=== PATIENT | male | born 1950 | race Caucasian/White ===

== ENCOUNTER 2017-09-10 16:29 | Inpatient (IN) | payer MEDICARE, OTHER ==
[2017-09-10] MEDS: morphine 4 MG/ML VIAL IV (17:07)
[2017-09-10] MEDS: ONDANSETRON 4 MG INJ IV (17:07)
[2017-09-10] MEDS: SOD CHLORIDE 0.9% 1,000 ML IV (17:08)
[2017-09-10 17:12] LABS: ADD MAN DIFF? NO
[2017-09-10 17:15] LABS: BASOPHILS % 0.2 % (0.0-2.0); EOSINOPHILS # 0.2 10^3/ul (0.0-0.5); EOSINOPHILS % 1.3 % (0.0-7.0); HEMATOCRIT 35.9 % (42.0-52.0); HEMOGLOBIN 11.1 g/dl (14.0-18.0); LYMPHOCYTES # 1.2 10^3/ul (0.8-2.9); LYMPHOCYTES % 8.4 % (15.0-51.0); MEAN CORPUSCULAR HEMOGLOBIN 27.9 pg (29.0-33.0); MEAN CORPUSCULAR HGB CONC 30.9 g/dl (32.0-37.0); MEAN CORPUSCULAR VOLUME 90.2 fl (82.0-101.0); MEAN PLATELET VOLUME 11.5 fl (7.4-10.4); MONOCYTE # 0.6 10^3/ul (0.3-0.9); MONOCYTES % 4.5 % (0.0-11.0); PLATELET COUNT 295 10^3/UL (140-415); RED BLOOD COUNT 3.98 10^6/ul (4.70-6.10); RED CELL DISTRIBUTION WIDTH 13.6 % (11.5-14.5)
[2017-09-10 17:15] LABS: WHITE BLOOD COUNT 14.1 10^3/ul (4.8-10.8)
[2017-09-10 17:37] LABS: ALANINE AMINOTRANSFERASE 74 IU/L (13-69); ALBUMIN 3.7 g/dl (3.3-4.9); ALBUMIN/GLOBULIN RATIO 1.02; ALKALINE PHOSPHATASE 810 IU/L (42-121); ANION GAP 13 (8-16); ASPARTATE AMINO TRANSFERASE 238 IU/L (15-46); BILIRUBIN,INDIRECT 0.2 mg/dl (0-1.1); BILIRUBIN,TOTAL 0.3 mg/dl (0.2-1.3); BLOOD UREA NITROGEN 27 mg/dl (7-20); CALCIUM 9.4 mg/dl (8.4-10.2); CARBON DIOXIDE 30 mmol/L (21-31); CHLORIDE 107 mmol/L (97-110); CREATININE 1.24 mg/dl (0.61-1.24); GLUCOSE 53 mg/dl (70-220); LIPASE 62 U/L (23-300); POTASSIUM 4.2 mmol/L (3.5-5.1); SODIUM 146 mmol/L (135-144); TOTAL PROTEIN 7.3 g/dl (6.1-8.1)
[2017-09-10] MEDS ORDERED: DEXTROSE 50% 50 ML SYRINGE (18:17)
[2017-09-10] MEDS: DEXTROSE 50% 50 ML SYRINGE IV (18:22)
[2017-09-10] MEDS ORDERED: ONDANSETRON 4 MG INJ IV (19:00)
[2017-09-10] MEDS ORDERED: ACETAMINOPHEN 325 MG TAB PO ×3 (19:00→20:30)
[2017-09-10] MEDS: LEVOFLOXACIN 500MG/D5W (PMX) 100 ML IVPB (20:23)
[2017-09-10] MEDS: morphine 2 MG INJ IV (20:23)
[2017-09-10] MEDS ORDERED: NACL 0.9% 3 ML SYG IV (20:30)
[2017-09-10] MEDS: DICLOFENAC SODIUM 1% GEL 100 GM TUBE TP (21:00)
[2017-09-10] MEDS: TAMSULOSIN (SR) 0.4 MG CAP PO (22:20)
[2017-09-10] MEDS: CARBIDOPA/LEVODOPA (25/100) TAB PO (22:20)
[2017-09-10] MEDS: GABAPENTIN 400 MG CAP PO (22:21)
[2017-09-10] MEDS: traZODone 50 MG TAB PO (22:21)
[2017-09-10] MEDS: SENNA TAB PO (22:21)
[2017-09-10] MEDS: FERROUS SULFATE (EC) 325 MG TAB PO (22:21)
[2017-09-10] MEDS: DEXTROSE 5%-0.45% NACL 1,000 ML IV (22:22)
[2017-09-10] MEDS: PIPER-TAZO 3.375 GM IV (PMX) 100 ML IVPB (22:22)
[2017-09-10] MEDS: EZETIMIBE 10 MG TAB PO (22:33)
[2017-09-10] MEDS: DIVALPROEX (EC) 250 MG TAB PO (22:33)
[2017-09-11] MEDS: morphine 2 MG INJ IV ×4 (00:36→16:34)
[2017-09-11] MEDS: PANTOPRAZOLE (EC) 40 MG TAB PO (05:33)
[2017-09-11] MEDS: PIPER-TAZO 3.375 GM IV (PMX) 100 ML IVPB ×3 (05:33→22:31)
[2017-09-11 05:55] LABS: ADD MAN DIFF? NO
[2017-09-11 06:03] LABS: WHITE BLOOD COUNT 22.8 10^3/ul (4.8-10.8)
[2017-09-11 06:03] LABS: ABNORMAL IP MESSAGE 1; BASOPHILS % 0.2 % (0.0-2.0); EOSINOPHILS # 0.1 10^3/ul (0.0-0.5); EOSINOPHILS % 0.2 % (0.0-7.0); HEMATOCRIT 32.6 % (42.0-52.0); HEMOGLOBIN 10.3 g/dl (14.0-18.0); LYMPHOCYTES # 0.7 10^3/ul (0.8-2.9); MEAN CORPUSCULAR HEMOGLOBIN 28.4 pg (29.0-33.0); MEAN CORPUSCULAR HGB CONC 31.6 g/dl (32.0-37.0); MEAN CORPUSCULAR VOLUME 89.8 fl (82.0-101.0); MEAN PLATELET VOLUME 11.8 fl (7.4-10.4); MONOCYTE # 1.3 10^3/ul (0.3-0.9); MONOCYTES % 5.8 % (0.0-11.0); NEUTROPHIL # 20.6 10^3/ul (1.6-7.5); NEUTROPHILS % 90.2 % (39.0-77.0); PLATELET COUNT 268 10^3/UL (140-415); POSITIVE DIFF @See below; RED BLOOD COUNT 3.63 10^6/ul (4.70-6.10); RED CELL DISTRIBUTION WIDTH 13.4 % (11.5-14.5)
[2017-09-11 06:07] LABS: HEMOGLOBIN A1C 6.5 % (0-5.9)
[2017-09-11 06:27] LABS: ALANINE AMINOTRANSFERASE 84 IU/L (13-69); ALBUMIN 2.9 g/dl (3.3-4.9); ALBUMIN/GLOBULIN RATIO 0.93; ALKALINE PHOSPHATASE 571 IU/L (42-121); ANION GAP 12 (8-16); ASPARTATE AMINO TRANSFERASE 237 IU/L (15-46); BILIRUBIN,INDIRECT 0.3 mg/dl (0-1.1); BILIRUBIN,TOTAL 0.7 mg/dl (0.2-1.3); BLOOD UREA NITROGEN 24 mg/dl (7-20); CALCIUM 8.4 mg/dl (8.4-10.2); CARBON DIOXIDE 27 mmol/L (21-31); CHLORIDE 109 mmol/L (97-110); CREATININE 1.41 mg/dl (0.61-1.24); GLUCOSE 115 mg/dl (70-220); MAGNESIUM 1.9 mg/dl (1.7-2.5); PHOSPHORUS 3.1 mg/dl (2.5-4.9); POTASSIUM 5.4 mmol/L (3.5-5.1); SODIUM 143 mmol/L (135-144)
[2017-09-11] MEDS ORDERED: ROCURONIUM 50 MG INJ (07:00)
[2017-09-11] MEDS: FINASTERIDE 5 MG TAB PO (08:12)
[2017-09-11] MEDS: CYANOCOBALAMIN 500 MCG TAB PO (08:12)
[2017-09-11] MEDS: FERROUS SULFATE (EC) 325 MG TAB PO ×2 (08:12→21:01)
[2017-09-11] MEDS: SENNA TAB PO ×2 (08:12→21:02)
[2017-09-11] MEDS: GABAPENTIN 400 MG CAP PO ×3 (08:12→21:01)
[2017-09-11] MEDS: DIVALPROEX (EC) 250 MG TAB PO ×2 (08:12→21:01)
[2017-09-11] MEDS: CARBIDOPA/LEVODOPA (25/100) TAB PO ×4 (08:12→21:02)
[2017-09-11] MEDS: LOSARTAN 50 MG TAB PO (08:13)
[2017-09-11] MEDS: DICLOFENAC SODIUM 1% GEL 100 GM TUBE TP ×4 (08:46→21:02)
[2017-09-11] MEDS ORDERED: ASPIRIN 81 MG TAB PO (09:00)
[2017-09-11] MEDS: ONDANSETRON 4 MG INJ IV ×2 (09:14→22:28)
[2017-09-11] MEDS: DEXTROSE 5%-0.45% NACL 1,000 ML IV ×3 (10:26→22:28)
[2017-09-11] MEDS ORDERED: PENDING SANTYL ORDER FOR WOUND CARE XX (11:00)
[2017-09-11] MEDS ORDERED: IOHEXOL 300MG/ML 30 ML BTL (18:29)
[2017-09-11] MEDS ORDERED: MIDAZOLAM 1 MG/ML 2 ML INJ (18:53)
[2017-09-11] MEDS ORDERED: FENTAnyl 50 MCG/ML VIAL (18:53)
[2017-09-11] MEDS ORDERED: ETOMIDATE 20 MG INJ (18:53)
[2017-09-11] MEDS ORDERED: LIDOCAINE 1% (MDV) 20 ML INJ (18:53)
[2017-09-11] MEDS ORDERED: INDOMETHACIN 50 MG SUPP PR (19:00)
[2017-09-11] MEDS ORDERED: EPHEDrine SULFATE 50 MG/5 ML SYG (19:16)
[2017-09-11] MEDS ORDERED: CEFAZOLIN 1 GM INJ (19:19)
[2017-09-11] MEDS ORDERED: PHENYLephrine (100 MCG/ML) 5ML SYG (19:20)
[2017-09-11] MEDS ORDERED: ONDANSETRON 4 MG INJ (19:48)
[2017-09-11] MEDS ORDERED: SUGAMMADEX SODIUM 200 MG/2 ML VIAL IV (19:52)
[2017-09-11] MEDS: EZETIMIBE 10 MG TAB PO (21:01)
[2017-09-11] MEDS: TAMSULOSIN (SR) 0.4 MG CAP PO (21:01)
[2017-09-11] MEDS: traZODone 50 MG TAB PO (21:02)
[2017-09-11] MEDS ORDERED: DEXTROSE 50% 50 ML SYRINGE IV ×2 (21:45)
[2017-09-11] MEDS ORDERED: GLUCAGON 1 MG INJ IM (21:45)
[2017-09-11] MEDS ORDERED: GLUCOSE GEL 15 GRAM TUBE PO ×2 (21:45)
[2017-09-11] MEDS ORDERED: GLUCOSE GEL 15 GRAM TUBE BUCCAL (21:45)
[2017-09-11] MEDS: INSULIN DETEMIR [LEVEMIR] 3ML CART SC (22:33)
[2017-09-11] MEDS: INSULIN ASPART [NOVOLOG] 3 ML PEN SC (22:34)
[2017-09-12] MEDS: ACCU-CHEK XX (02:00)
[2017-09-12] MEDS: PIPER-TAZO 3.375 GM IV (PMX) 100 ML IVPB ×3 (05:46→21:48)
[2017-09-12] MEDS: PANTOPRAZOLE (EC) 40 MG TAB PO (05:46)
[2017-09-12 05:55] LABS: ADD MAN DIFF? NO
[2017-09-12 06:04] LABS: WHITE BLOOD COUNT 11.7 10^3/ul (4.8-10.8)
[2017-09-12 06:04] LABS: BASOPHILS % 0.3 % (0.0-2.0); EOSINOPHILS # 0.2 10^3/ul (0.0-0.5); EOSINOPHILS % 1.3 % (0.0-7.0); HEMATOCRIT 32.3 % (42.0-52.0); LYMPHOCYTES # 0.6 10^3/ul (0.8-2.9); LYMPHOCYTES % 5.4 % (15.0-51.0); MEAN CORPUSCULAR HEMOGLOBIN 28.2 pg (29.0-33.0); MEAN PLATELET VOLUME 11.8 fl (7.4-10.4); MONOCYTE # 0.7 10^3/ul (0.3-0.9); MONOCYTES % 6.3 % (0.0-11.0); NEUTROPHIL # 10.1 10^3/ul (1.6-7.5); NEUTROPHILS % 86.2 % (39.0-77.0); PLATELET COUNT 227 10^3/UL (140-415); RED BLOOD COUNT 3.55 10^6/ul (4.70-6.10); RED CELL DISTRIBUTION WIDTH 13.4 % (11.5-14.5)
[2017-09-12 06:31] LABS: PHOSPHORUS 2.9 mg/dl (2.5-4.9)
[2017-09-12 06:31] LABS: MAGNESIUM 1.9 mg/dl (1.7-2.5)
[2017-09-12 06:37] LABS: ALANINE AMINOTRANSFERASE 60 IU/L (13-69); ALBUMIN 2.8 g/dl (3.3-4.9); ALBUMIN/GLOBULIN RATIO 0.87; ALKALINE PHOSPHATASE 517 IU/L (42-121); ANION GAP 13 (8-16); ASPARTATE AMINO TRANSFERASE 105 IU/L (15-46); BILIRUBIN,INDIRECT 0.4 mg/dl (0-1.1); BILIRUBIN,TOTAL 1.4 mg/dl (0.2-1.3); BLOOD UREA NITROGEN 19 mg/dl (7-20); CARBON DIOXIDE 24 mmol/L (21-31); CHLORIDE 106 mmol/L (97-110); CREATININE 1.38 mg/dl (0.61-1.24); GLUCOSE 345 mg/dl (70-220); POTASSIUM 4.4 mmol/L (3.5-5.1); SODIUM 139 mmol/L (135-144)
[2017-09-12] MEDS: INSULIN ASPART [NOVOLOG] 3 ML PEN SC ×4 (08:14→22:03)
[2017-09-12] MEDS: GABAPENTIN 400 MG CAP PO ×3 (08:15→21:52)
[2017-09-12] MEDS: CARBIDOPA/LEVODOPA (25/100) TAB PO ×4 (08:16→21:50)
[2017-09-12] MEDS: CYANOCOBALAMIN 500 MCG TAB PO (08:16)
[2017-09-12] MEDS: DIVALPROEX (EC) 250 MG TAB PO ×2 (08:16→22:37)
[2017-09-12] MEDS: SENNA TAB PO ×2 (08:16→21:49)
[2017-09-12] MEDS: DICLOFENAC SODIUM 1% GEL 100 GM TUBE TP ×4 (08:16→21:52)
[2017-09-12] MEDS: FERROUS SULFATE (EC) 325 MG TAB PO ×2 (08:16→21:52)
[2017-09-12] MEDS: FINASTERIDE 5 MG TAB PO (08:16)
[2017-09-12] MEDS: morphine 2 MG INJ IV ×2 (08:17→13:19)
[2017-09-12] MEDS: LOSARTAN 50 MG TAB PO (08:26)
[2017-09-12] MEDS: SOD CHLORIDE 0.9% 1,000 ML IV (09:25)
[2017-09-12] MEDS: ONDANSETRON 4 MG INJ IV (13:31)
[2017-09-12] MEDS ORDERED: morphine LIQ (10 MG/5 ML) CUP PO (14:00)
[2017-09-12] MEDS: HYDROmorphONE 0.5 MG/0.5 ML SYG IV ×2 (18:27→22:37)
[2017-09-12] MEDS ORDERED: INSULIN DETEMIR [LEVEMIR] 3ML CART SC ×2 (21:00)
[2017-09-12] MEDS: TAMSULOSIN (SR) 0.4 MG CAP PO (21:50)
[2017-09-12] MEDS: traZODone 50 MG TAB PO (21:50)
[2017-09-12] MEDS: EZETIMIBE 10 MG TAB PO (21:51)
[2017-09-12] MEDS: INSULIN DETEMIR [LEVEMIR] 3ML CART SC (22:02)
[2017-09-13] MEDS: ACCU-CHEK XX (02:00)
[2017-09-13] MEDS: SOD CHLORIDE 0.9% 1,000 ML IV (02:46)
[2017-09-13] MEDS: HYDROmorphONE 0.5 MG/0.5 ML SYG IV ×4 (02:46→17:36)
[2017-09-13] MEDS: PANTOPRAZOLE (EC) 40 MG TAB PO (06:12)
[2017-09-13] MEDS: PIPER-TAZO 3.375 GM IV (PMX) 100 ML IVPB ×3 (06:12→22:01)
[2017-09-13 06:14] LABS: ADD MAN DIFF? NO
[2017-09-13 06:21] LABS: WHITE BLOOD COUNT 8.9 10^3/ul (4.8-10.8)
[2017-09-13 06:21] LABS: BASOPHILS % 0.2 % (0.0-2.0); EOSINOPHILS # 0.3 10^3/ul (0.0-0.5); EOSINOPHILS % 3.7 % (0.0-7.0); HEMATOCRIT 32.7 % (42.0-52.0); HEMOGLOBIN 10.1 g/dl (14.0-18.0); LYMPHOCYTES # 0.9 10^3/ul (0.8-2.9); LYMPHOCYTES % 10.6 % (15.0-51.0); MEAN CORPUSCULAR HEMOGLOBIN 27.7 pg (29.0-33.0); MEAN CORPUSCULAR HGB CONC 30.9 g/dl (32.0-37.0); MEAN CORPUSCULAR VOLUME 89.6 fl (82.0-101.0); MEAN PLATELET VOLUME 12.5 fl (7.4-10.4); MONOCYTE # 0.4 10^3/ul (0.3-0.9); MONOCYTES % 4.9 % (0.0-11.0); NEUTROPHIL # 7.1 10^3/ul (1.6-7.5); PLATELET COUNT 223 10^3/UL (140-415); RED BLOOD COUNT 3.65 10^6/ul (4.70-6.10); RED CELL DISTRIBUTION WIDTH 13.6 % (11.5-14.5)
[2017-09-13 06:55] LABS: ALANINE AMINOTRANSFERASE 53 IU/L (13-69); ALBUMIN 2.8 g/dl (3.3-4.9); ALBUMIN/GLOBULIN RATIO 0.93; ALKALINE PHOSPHATASE 522 IU/L (42-121); ANION GAP 9 (8-16); ASPARTATE AMINO TRANSFERASE 63 IU/L (15-46); BILIRUBIN,INDIRECT 0.4 mg/dl (0-1.1); BILIRUBIN,TOTAL 0.4 mg/dl (0.2-1.3); BLOOD UREA NITROGEN 13 mg/dl (7-20); CALCIUM 8.4 mg/dl (8.4-10.2); CARBON DIOXIDE 27 mmol/L (21-31); CHLORIDE 111 mmol/L (97-110); CREATININE 1.25 mg/dl (0.61-1.24); GLUCOSE 187 mg/dl (70-220); POTASSIUM 4.1 mmol/L (3.5-5.1); SODIUM 143 mmol/L (135-144); TOTAL PROTEIN 5.8 g/dl (6.1-8.1)
[2017-09-13 06:58] LABS: MAGNESIUM 1.9 mg/dl (1.7-2.5)
[2017-09-13 06:58] LABS: PHOSPHORUS 2.5 mg/dl (2.5-4.9)
[2017-09-13] MEDS: INSULIN ASPART [NOVOLOG] 3 ML PEN SC ×7 (07:35→21:02)
[2017-09-13] MEDS: ONDANSETRON 4 MG INJ IV ×2 (09:28→17:41)
[2017-09-13] MEDS: DICLOFENAC SODIUM 1% GEL 100 GM TUBE TP ×4 (09:32→21:02)
[2017-09-13] MEDS: GABAPENTIN 400 MG CAP PO ×3 (11:56→20:59)
[2017-09-13] MEDS: DIVALPROEX (EC) 250 MG TAB PO ×2 (11:56→20:59)
[2017-09-13] MEDS: FERROUS SULFATE (EC) 325 MG TAB PO ×2 (11:56→20:59)
[2017-09-13] MEDS: LOSARTAN 50 MG TAB PO (11:56)
[2017-09-13] MEDS: FINASTERIDE 5 MG TAB PO (11:57)
[2017-09-13] MEDS: CYANOCOBALAMIN 500 MCG TAB PO (11:57)
[2017-09-13] MEDS: SENNA TAB PO ×2 (11:57→21:00)
[2017-09-13] MEDS: CARBIDOPA/LEVODOPA (25/100) TAB PO ×4 (11:57→21:00)
[2017-09-13] MEDS: TAMSULOSIN (SR) 0.4 MG CAP PO (20:59)
[2017-09-13] MEDS: EZETIMIBE 10 MG TAB PO (21:00)
[2017-09-13] MEDS: traZODone 50 MG TAB PO (21:00)
[2017-09-13] MEDS: INSULIN DETEMIR [LEVEMIR] 3ML CART SC (21:01)
[2017-09-14] MEDS: ACCU-CHEK XX (01:12)
[2017-09-14] MEDS: MAGNESIUM HYDROXIDE 30ML CUP PO (05:43)
[2017-09-14] MEDS: PIPER-TAZO 3.375 GM IV (PMX) 100 ML IVPB ×3 (05:43→21:53)
[2017-09-14] MEDS: PANTOPRAZOLE (EC) 40 MG TAB PO (05:44)
[2017-09-14 06:21] LABS: ADD MAN DIFF? NO
[2017-09-14 06:23] LABS: BASOPHILS % 0.5 % (0.0-2.0); EOSINOPHILS # 0.4 10^3/ul (0.0-0.5); EOSINOPHILS % 4.8 % (0.0-7.0); HEMATOCRIT 34.7 % (42.0-52.0); HEMOGLOBIN 10.9 g/dl (14.0-18.0); LYMPHOCYTES # 1.3 10^3/ul (0.8-2.9); LYMPHOCYTES % 15.1 % (15.0-51.0); MEAN CORPUSCULAR HEMOGLOBIN 27.5 pg (29.0-33.0); MEAN CORPUSCULAR HGB CONC 31.4 g/dl (32.0-37.0); MEAN CORPUSCULAR VOLUME 87.4 fl (82.0-101.0); MEAN PLATELET VOLUME 11.9 fl (7.4-10.4); MONOCYTE # 0.5 10^3/ul (0.3-0.9); MONOCYTES % 6.1 % (0.0-11.0); NEUTROPHIL # 6.3 10^3/ul (1.6-7.5); NEUTROPHILS % 72.9 % (39.0-77.0); PLATELET COUNT 260 10^3/UL (140-415); RED BLOOD COUNT 3.97 10^6/ul (4.70-6.10); RED CELL DISTRIBUTION WIDTH 13.7 % (11.5-14.5)
[2017-09-14 06:23] LABS: WHITE BLOOD COUNT 8.6 10^3/ul (4.8-10.8)
[2017-09-14 06:45] LABS: MAGNESIUM 1.9 mg/dl (1.7-2.5)
[2017-09-14 06:45] LABS: PHOSPHORUS 2.8 mg/dl (2.5-4.9)
[2017-09-14 06:49] LABS: ANION GAP 12 (8-16); BLOOD UREA NITROGEN 11 mg/dl (7-20); CALCIUM 8.4 mg/dl (8.4-10.2); CARBON DIOXIDE 26 mmol/L (21-31); CHLORIDE 109 mmol/L (97-110); CREATININE 1.13 mg/dl (0.61-1.24); GLUCOSE 175 mg/dl (70-220); POTASSIUM 4.4 mmol/L (3.5-5.1); SODIUM 143 mmol/L (135-144)
[2017-09-14] MEDS: INSULIN ASPART [NOVOLOG] 3 ML PEN SC ×7 (07:35→20:37)
[2017-09-14] MEDS: FERROUS SULFATE (EC) 325 MG TAB PO ×3 (09:00→20:34)
[2017-09-14] MEDS: DIVALPROEX (EC) 250 MG TAB PO ×3 (09:00→20:34)
[2017-09-14] MEDS: LOSARTAN 50 MG TAB PO ×2 (09:00→11:20)
[2017-09-14] MEDS: DICLOFENAC SODIUM 1% GEL 100 GM TUBE TP ×5 (09:00→20:45)
[2017-09-14] MEDS: GABAPENTIN 400 MG CAP PO ×4 (09:00→20:34)
[2017-09-14] MEDS: SENNA TAB PO ×3 (09:00→20:34)
[2017-09-14] MEDS: CARBIDOPA/LEVODOPA (25/100) TAB PO ×5 (09:00→20:34)
[2017-09-14] MEDS: FINASTERIDE 5 MG TAB PO ×2 (09:00→11:20)
[2017-09-14] MEDS: CYANOCOBALAMIN 500 MCG TAB PO ×2 (09:00→11:20)
[2017-09-14] MEDS: HYDROmorphONE 0.5 MG/0.5 ML SYG IV ×3 (11:15→20:39)
[2017-09-14] MEDS: ONDANSETRON 4 MG INJ IV (13:02)
[2017-09-14] MEDS: HYDROCODONE/APAP (5/325) TAB PO (14:27)
[2017-09-14] MEDS: TAMSULOSIN (SR) 0.4 MG CAP PO (20:34)
[2017-09-14] MEDS: EZETIMIBE 10 MG TAB PO (20:34)
[2017-09-14] MEDS: traZODone 50 MG TAB PO (20:34)
[2017-09-14] MEDS: INSULIN DETEMIR [LEVEMIR] 3ML CART SC (20:37)
[2017-09-15] MEDS: HYDROmorphONE 0.5 MG/0.5 ML SYG IV ×6 (01:57→23:00)
[2017-09-15] MEDS: ACCU-CHEK XX (02:00)
[2017-09-15] MEDS: PIPER-TAZO 3.375 GM IV (PMX) 100 ML IVPB ×3 (05:34→21:48)
[2017-09-15] MEDS: PANTOPRAZOLE (EC) 40 MG TAB PO (05:34)
[2017-09-15 07:13] LABS: ADD MAN DIFF? NO
[2017-09-15 07:18] LABS: WHITE BLOOD COUNT 7.7 10^3/ul (4.8-10.8)
[2017-09-15 07:18] LABS: BASOPHILS % 0.5 % (0.0-2.0); EOSINOPHILS # 0.3 10^3/ul (0.0-0.5); EOSINOPHILS % 4.4 % (0.0-7.0); HEMATOCRIT 33.6 % (42.0-52.0); HEMOGLOBIN 10.5 g/dl (14.0-18.0); LYMPHOCYTES # 1.3 10^3/ul (0.8-2.9); MEAN CORPUSCULAR HEMOGLOBIN 27.9 pg (29.0-33.0); MEAN CORPUSCULAR HGB CONC 31.3 g/dl (32.0-37.0); MEAN CORPUSCULAR VOLUME 89.4 fl (82.0-101.0); MONOCYTE # 0.6 10^3/ul (0.3-0.9); MONOCYTES % 7.6 % (0.0-11.0); NEUTROPHIL # 5.4 10^3/ul (1.6-7.5); PLATELET COUNT 244 10^3/UL (140-415); RED BLOOD COUNT 3.76 10^6/ul (4.70-6.10); RED CELL DISTRIBUTION WIDTH 13.9 % (11.5-14.5)
[2017-09-15 07:42] LABS: ALANINE AMINOTRANSFERASE 40 IU/L (13-69); ALBUMIN 3.2 g/dl (3.3-4.9); ALBUMIN/GLOBULIN RATIO 0.91; ALKALINE PHOSPHATASE 489 IU/L (42-121); ANION GAP 14 (8-16); ASPARTATE AMINO TRANSFERASE 19 IU/L (15-46); BILIRUBIN,INDIRECT 0.6 mg/dl (0-1.1); BILIRUBIN,TOTAL 0.6 mg/dl (0.2-1.3); BLOOD UREA NITROGEN 15 mg/dl (7-20); CALCIUM 8.4 mg/dl (8.4-10.2); CARBON DIOXIDE 27 mmol/L (21-31); CHLORIDE 106 mmol/L (97-110); CREATININE 1.11 mg/dl (0.61-1.24); GLUCOSE 181 mg/dl (70-220); POTASSIUM 4.4 mmol/L (3.5-5.1); SODIUM 143 mmol/L (135-144); TOTAL PROTEIN 6.7 g/dl (6.1-8.1)
[2017-09-15 07:47] LABS: PHOSPHORUS 2.8 mg/dl (2.5-4.9)
[2017-09-15] MEDS: INSULIN ASPART [NOVOLOG] 3 ML PEN SC ×7 (08:00→21:00)
[2017-09-15] MEDS: DICLOFENAC SODIUM 1% GEL 100 GM TUBE TP ×4 (08:41→21:06)
[2017-09-15] MEDS: DIPHENHYDRAMINE 25 MG CAP PO (08:41)
[2017-09-15] MEDS: GABAPENTIN 400 MG CAP PO ×3 (08:42→20:56)
[2017-09-15] MEDS: SENNA TAB PO ×2 (08:42→20:56)
[2017-09-15] MEDS: LOSARTAN 50 MG TAB PO (08:43)
[2017-09-15] MEDS: CARBIDOPA/LEVODOPA (25/100) TAB PO ×4 (08:43→20:56)
[2017-09-15] MEDS: FINASTERIDE 5 MG TAB PO (08:43)
[2017-09-15] MEDS: FERROUS SULFATE (EC) 325 MG TAB PO ×2 (08:43→20:56)
[2017-09-15] MEDS: CYANOCOBALAMIN 500 MCG TAB PO (08:43)
[2017-09-15] MEDS: DIVALPROEX (EC) 250 MG TAB PO ×2 (08:45→20:56)
[2017-09-15] MEDS: HYDROCODONE/APAP (5/325) TAB PO (10:56)
[2017-09-15] MEDS: TAMSULOSIN (SR) 0.4 MG CAP PO (20:56)
[2017-09-15] MEDS: EZETIMIBE 10 MG TAB PO (20:56)
[2017-09-15] MEDS: traZODone 50 MG TAB PO (20:56)
[2017-09-15] MEDS: INSULIN DETEMIR [LEVEMIR] 3ML CART SC (21:15)
[2017-09-16] MEDS: ACCU-CHEK XX (02:00)
[2017-09-16] MEDS: HYDROmorphONE 0.5 MG/0.5 ML SYG IV ×4 (03:06→19:02)
[2017-09-16] MEDS: PIPER-TAZO 3.375 GM IV (PMX) 100 ML IVPB ×3 (05:33→21:31)
[2017-09-16] MEDS: PANTOPRAZOLE (EC) 40 MG TAB PO (05:35)
[2017-09-16] MEDS: INSULIN ASPART [NOVOLOG] 3 ML PEN SC ×7 (08:26→21:00)
[2017-09-16] MEDS: SENNA TAB PO ×2 (08:37→20:54)
[2017-09-16] MEDS: FERROUS SULFATE (EC) 325 MG TAB PO ×2 (08:37→20:54)
[2017-09-16] MEDS: DIVALPROEX (EC) 250 MG TAB PO ×2 (08:37→21:01)
[2017-09-16] MEDS: CARBIDOPA/LEVODOPA (25/100) TAB PO ×4 (08:37→20:54)
[2017-09-16] MEDS: LOSARTAN 50 MG TAB PO (08:37)
[2017-09-16] MEDS: DICLOFENAC SODIUM 1% GEL 100 GM TUBE TP ×4 (08:37→21:01)
[2017-09-16] MEDS: CYANOCOBALAMIN 500 MCG TAB PO (08:38)
[2017-09-16] MEDS: GABAPENTIN 400 MG CAP PO ×3 (08:38→20:54)
[2017-09-16] MEDS: FINASTERIDE 5 MG TAB PO (08:38)
[2017-09-16] MEDS: ONDANSETRON 4 MG INJ IV (11:31)
[2017-09-16] MEDS: MAGNESIUM HYDROXIDE 30ML CUP PO (12:32)
[2017-09-16] MEDS: DOCUSATE SODIUM 100 MG CAP PO (12:32)
[2017-09-16] MEDS: EZETIMIBE 10 MG TAB PO (20:54)
[2017-09-16] MEDS: TAMSULOSIN (SR) 0.4 MG CAP PO (20:54)
[2017-09-16] MEDS: traZODone 50 MG TAB PO (20:54)
[2017-09-16] MEDS: INSULIN DETEMIR [LEVEMIR] 3ML CART SC (21:00)
[2017-09-16] MEDS: ZOLPIDEM 5 MG TAB PO (22:34)
[2017-09-17] MEDS: ACCU-CHEK XX (01:52)
[2017-09-17] MEDS: PANTOPRAZOLE (EC) 40 MG TAB PO (05:48)
[2017-09-17] MEDS: PIPER-TAZO 3.375 GM IV (PMX) 100 ML IVPB ×3 (05:48→21:07)
[2017-09-17] MEDS: HYDROmorphONE 0.5 MG/0.5 ML SYG IV ×4 (05:49→19:00)
[2017-09-17] MEDS: INSULIN ASPART [NOVOLOG] 3 ML PEN SC ×9 (08:19→21:06)
[2017-09-17] MEDS: DIVALPROEX (EC) 250 MG TAB PO ×2 (08:22→21:04)
[2017-09-17] MEDS: SENNA TAB PO ×2 (08:22→21:04)
[2017-09-17] MEDS: CARBIDOPA/LEVODOPA (25/100) TAB PO ×4 (08:22→21:04)
[2017-09-17] MEDS: FINASTERIDE 5 MG TAB PO (08:23)
[2017-09-17] MEDS: GABAPENTIN 400 MG CAP PO ×3 (08:23→21:04)
[2017-09-17] MEDS: LOSARTAN 50 MG TAB PO (08:23)
[2017-09-17] MEDS: FERROUS SULFATE (EC) 325 MG TAB PO ×2 (08:23→21:04)
[2017-09-17] MEDS: CYANOCOBALAMIN 500 MCG TAB PO (08:23)
[2017-09-17] MEDS: DICLOFENAC SODIUM 1% GEL 100 GM TUBE TP ×4 (08:24→21:08)
[2017-09-17] MEDS: HYDROCODONE/APAP (5/325) TAB PO ×2 (10:53→16:34)
[2017-09-17 11:51] LABS: ADD MAN DIFF? NO
[2017-09-17 11:55] LABS: BASOPHILS % 0.4 % (0.0-2.0); EOSINOPHILS # 0.1 10^3/ul (0.0-0.5); EOSINOPHILS % 0.5 % (0.0-7.0); HEMATOCRIT 35.7 % (42.0-52.0); HEMOGLOBIN 10.9 g/dl (14.0-18.0); LYMPHOCYTES # 0.8 10^3/ul (0.8-2.9); LYMPHOCYTES % 7.4 % (15.0-51.0); MEAN CORPUSCULAR HEMOGLOBIN 28.2 pg (29.0-33.0); MEAN CORPUSCULAR HGB CONC 30.5 g/dl (32.0-37.0); MEAN CORPUSCULAR VOLUME 92.5 fl (82.0-101.0); MEAN PLATELET VOLUME 11.8 fl (7.4-10.4); MONOCYTE # 0.5 10^3/ul (0.3-0.9); MONOCYTES % 4.1 % (0.0-11.0); NEUTROPHIL # 9.6 10^3/ul (1.6-7.5); NEUTROPHILS % 86.9 % (39.0-77.0); PLATELET COUNT 253 10^3/UL (140-415); RED BLOOD COUNT 3.86 10^6/ul (4.70-6.10); RED CELL DISTRIBUTION WIDTH 13.7 % (11.5-14.5)
[2017-09-17 11:55] LABS: WHITE BLOOD COUNT 11.1 10^3/ul (4.8-10.8)
[2017-09-17 12:17] LABS: MAGNESIUM 2.1 mg/dl (1.7-2.5)
[2017-09-17 12:19] LABS: ALANINE AMINOTRANSFERASE 43 IU/L (13-69); ALBUMIN 3.2 g/dl (3.3-4.9); ALKALINE PHOSPHATASE 402 IU/L (42-121); ANION GAP 20 (8-16); ASPARTATE AMINO TRANSFERASE 25 IU/L (15-46); BILIRUBIN,INDIRECT 0.3 mg/dl (0-1.1); BILIRUBIN,TOTAL 0.3 mg/dl (0.2-1.3); BLOOD UREA NITROGEN 26 mg/dl (7-20); CALCIUM 8.8 mg/dl (8.4-10.2); CARBON DIOXIDE 23 mmol/L (21-31); CHLORIDE 99 mmol/L (97-110); CREATININE 1.49 mg/dl (0.61-1.24); POTASSIUM 5.2 mmol/L (3.5-5.1); SODIUM 137 mmol/L (135-144); TOTAL PROTEIN 6.1 g/dl (6.1-8.1)
[2017-09-17 12:20] LABS: GLUCOSE 504 mg/dl (70-220)
[2017-09-17] MEDS: INSULIN DETEMIR [LEVEMIR] 3ML CART SC ×2 (12:37→21:05)
[2017-09-17] MEDS ORDERED: ONDANSETRON 4 MG TAB PO (15:00)
[2017-09-17] MEDS: traZODone 50 MG TAB PO (21:04)
[2017-09-17] MEDS: EZETIMIBE 10 MG TAB PO (21:04)
[2017-09-17] MEDS: TAMSULOSIN (SR) 0.4 MG CAP PO (21:08)
[2017-09-18] MEDS: HYDROmorphONE 0.5 MG/0.5 ML SYG IV ×6 (00:09→23:21)
[2017-09-18] MEDS: ACCU-CHEK XX (01:27)
[2017-09-18] MEDS: PANTOPRAZOLE (EC) 40 MG TAB PO (05:21)
[2017-09-18] MEDS: PIPER-TAZO 3.375 GM IV (PMX) 100 ML IVPB ×3 (05:38→22:34)
[2017-09-18] MEDS: INSULIN ASPART [NOVOLOG] 3 ML PEN SC ×7 (08:02→22:27)
[2017-09-18] MEDS: GABAPENTIN 400 MG CAP PO ×3 (08:04→22:20)
[2017-09-18] MEDS: CARBIDOPA/LEVODOPA (25/100) TAB PO ×4 (08:04→22:19)
[2017-09-18] MEDS: CYANOCOBALAMIN 500 MCG TAB PO (08:04)
[2017-09-18] MEDS: SENNA TAB PO ×2 (08:04→22:19)
[2017-09-18] MEDS: LOSARTAN 50 MG TAB PO (08:04)
[2017-09-18] MEDS: FERROUS SULFATE (EC) 325 MG TAB PO ×2 (08:04→22:20)
[2017-09-18] MEDS: FINASTERIDE 5 MG TAB PO (08:04)
[2017-09-18] MEDS: DIVALPROEX (EC) 250 MG TAB PO ×2 (08:04→22:20)
[2017-09-18] MEDS: DICLOFENAC SODIUM 1% GEL 100 GM TUBE TP ×4 (08:05→22:21)
[2017-09-18 11:42] LABS: ADD MAN DIFF? NO
[2017-09-18 11:47] LABS: BASOPHIL # 0.1 10^3/ul (0.0-0.1); BASOPHILS % 0.5 % (0.0-2.0); EOSINOPHILS # 0.4 10^3/ul (0.0-0.5); EOSINOPHILS % 4.2 % (0.0-7.0); HEMATOCRIT 31.7 % (42.0-52.0); LYMPHOCYTES # 1.8 10^3/ul (0.8-2.9); LYMPHOCYTES % 19.1 % (15.0-51.0); MEAN CORPUSCULAR HGB CONC 31.5 g/dl (32.0-37.0); MEAN CORPUSCULAR VOLUME 88.8 fl (82.0-101.0); MEAN PLATELET VOLUME 12.2 fl (7.4-10.4); MONOCYTE # 0.8 10^3/ul (0.3-0.9); MONOCYTES % 8.1 % (0.0-11.0); NEUTROPHIL # 6.4 10^3/ul (1.6-7.5); NEUTROPHILS % 67.5 % (39.0-77.0); POSITIVE DIFF @See below; RED BLOOD COUNT 3.57 10^6/ul (4.70-6.10); RED CELL DISTRIBUTION WIDTH 13.6 % (11.5-14.5)
[2017-09-18 11:47] LABS: WHITE BLOOD COUNT 9.4 10^3/ul (4.8-10.8)
[2017-09-18 11:49] LABS: PLATELET COUNT 153 10^3/UL (140-415)
[2017-09-18 12:10] LABS: ALANINE AMINOTRANSFERASE 27 IU/L (13-69); ALBUMIN 3.1 g/dl (3.3-4.9); ALBUMIN/GLOBULIN RATIO 0.96; ALKALINE PHOSPHATASE 321 IU/L (42-121); ANION GAP 13 (8-16); ASPARTATE AMINO TRANSFERASE 18 IU/L (15-46); BILIRUBIN,INDIRECT 0.3 mg/dl (0-1.1); BILIRUBIN,TOTAL 0.3 mg/dl (0.2-1.3); BLOOD UREA NITROGEN 25 mg/dl (7-20); CALCIUM 8.3 mg/dl (8.4-10.2); CARBON DIOXIDE 29 mmol/L (21-31); CHLORIDE 102 mmol/L (97-110); CREATININE 1.22 mg/dl (0.61-1.24); GLUCOSE 266 mg/dl (70-220); POTASSIUM 4.2 mmol/L (3.5-5.1); SODIUM 140 mmol/L (135-144); TOTAL PROTEIN 6.3 g/dl (6.1-8.1)
[2017-09-18] MEDS: traZODone 50 MG TAB PO (22:19)
[2017-09-18] MEDS: EZETIMIBE 10 MG TAB PO (22:20)
[2017-09-18] MEDS: TAMSULOSIN (SR) 0.4 MG CAP PO (22:20)
[2017-09-18] MEDS: INSULIN DETEMIR [LEVEMIR] 3ML CART SC (22:27)
[2017-09-19] MEDS: ACCU-CHEK XX (02:00)
[2017-09-19] MEDS: PANTOPRAZOLE (EC) 40 MG TAB PO (06:08)
[2017-09-19] MEDS: PIPER-TAZO 3.375 GM IV (PMX) 100 ML IVPB ×2 (06:08→13:56)
[2017-09-19] MEDS: HYDROmorphONE 0.5 MG/0.5 ML SYG IV ×4 (06:24→18:15)
[2017-09-19] MEDS: INSULIN ASPART [NOVOLOG] 3 ML PEN SC ×6 (08:17→17:29)
[2017-09-19] MEDS: FERROUS SULFATE (EC) 325 MG TAB PO (08:18)
[2017-09-19] MEDS: GABAPENTIN 400 MG CAP PO ×2 (08:18→12:43)
[2017-09-19] MEDS: CYANOCOBALAMIN 500 MCG TAB PO (08:18)
[2017-09-19] MEDS: DIVALPROEX (EC) 250 MG TAB PO (08:18)
[2017-09-19] MEDS: SENNA TAB PO (08:18)
[2017-09-19] MEDS: FINASTERIDE 5 MG TAB PO (08:18)
[2017-09-19] MEDS: CARBIDOPA/LEVODOPA (25/100) TAB PO ×3 (08:18→17:29)
[2017-09-19] MEDS: DICLOFENAC SODIUM 1% GEL 100 GM TUBE TP ×3 (08:19→17:30)
[2017-09-19] MEDS: LOSARTAN 50 MG TAB PO (08:50)
[2017-09-19] MEDS: AMLODIPINE 5 MG TAB PO ×2 (10:30→16:00)
== END 2017-09-19 18:48 | DRG 445 ==
LOC: PP2 09-12 13:36 → E/R 16:29 → PP2 09-11 14:05
PROC: 0FCC8ZZ Extirpation of Matter from Ampulla of Vater, Via Natural or Artificial Opening Endoscopic (ICD-10-PCS; principal; 2017-09-11 18:00)
PROC: 0F7C8DZ Dilation of Ampulla of Vater with Intraluminal Device, Via Natural or Artificial Opening Endoscopic (ICD-10-PCS; 2017-09-11 18:00)
DX: K80.32 Calculus of bile duct with acute cholangitis without obstruction (principal); I69.951 Hemiplegia and hemiparesis following unspecified cerebrovascular disease affecting right dominant side; E11.40 Type 2 diabetes mellitus with diabetic neuropathy, unspecified; G20 Parkinson's disease; I12.9 Hypertensive chronic kidney disease with stage 1 through stage 4 chronic kidney disease, or unspecified chronic kidney disease; N18.3 Chronic kidney disease, stage 3 (moderate); G40.909 Epilepsy, unspecified, not intractable, without status epilepticus; N40.0 Benign prostatic hyperplasia without lower urinary tract symptoms; F01.50 Vascular dementia, unspecified severity, without behavioral disturbance, psychotic disturbance, mood disturbance, and anxiety; K59.00 Constipation, unspecified
CPT/HCPCS: 36415; 74176; 74330; 80048; 80053; 82962; 83036; 83690; 83735; 84100; 84443; 85025; 87081; 92610; 93970; 96365; 96375; 96376; 99285-25

== ENCOUNTER 2018-03-16 07:02 | Inpatient (IN) | payer MEDICARE, OTHER, MEDICAID ==
[2018-03-16 07:46] LABS: ADD MAN DIFF? NO
[2018-03-16 07:48] LABS: WHITE BLOOD COUNT 14.6 10^3/ul (4.8-10.8)
[2018-03-16 07:48] LABS: BASOPHIL # 0.1 10^3/ul (0.0-0.1); BASOPHILS % 0.5 % (0.0-2.0); EOSINOPHILS # 0.1 10^3/ul (0.0-0.5); EOSINOPHILS % 0.8 % (0.0-7.0); HEMATOCRIT 32.1 % (42.0-52.0); HEMOGLOBIN 9.8 g/dl (14.0-18.0); LYMPHOCYTES # 1.4 10^3/ul (0.8-2.9); LYMPHOCYTES % 9.6 % (15.0-51.0); MEAN CORPUSCULAR HEMOGLOBIN 28.9 pg (29.0-33.0); MEAN CORPUSCULAR HGB CONC 30.5 g/dl (32.0-37.0); MEAN CORPUSCULAR VOLUME 94.7 fl (82.0-101.0); MEAN PLATELET VOLUME 11.8 fl (7.4-10.4); MONOCYTE # 0.3 10^3/ul (0.3-0.9); MONOCYTES % 1.9 % (0.0-11.0); NEUTROPHIL # 12.6 10^3/ul (1.6-7.5); NEUTROPHILS % 86.7 % (39.0-77.0); POSITIVE DIFF @See below; RED BLOOD COUNT 3.39 10^6/ul (4.70-6.10); RED CELL DISTRIBUTION WIDTH 13.6 % (11.5-14.5)
[2018-03-16 07:52] LABS: ADD UMIC NO; UR ASCORBIC ACID NEGATIVE (NEGATIVE); UR BILIRUBIN (Dip) NEGATIVE (NEGATIVE); UR BLOOD (Dip) NEGATIVE (NEGATIVE); UR CLARITY CLEAR (CLEAR); UR COLOR STRAW (YELLOW); UR GLUCOSE (Dip) 3+ mg/dL (NEGATIVE); UR KETONES (Dip) 2+ mg/dL (NEGATIVE); UR LEUKOCYTE ESTERASE (Dip) NEGATIVE Leu/ul (NEGATIVE); UR NITRITE (Dip) NEGATIVE (NEGATIVE); UR TOTAL PROTEIN (Dip) NEGATIVE (NEGATIVE); UR UROBILINOGEN (Dip) NEGATIVE (NEGATIVE)
[2018-03-16 08:02] LABS: PLATELET COUNT 331 10^3/UL (140-415)
[2018-03-16 08:06] LABS: ALANINE AMINOTRANSFERASE 6 IU/L (13-69); ALBUMIN 3.9 g/dl (3.3-4.9); ALBUMIN/GLOBULIN RATIO 1.05; ALKALINE PHOSPHATASE 225 IU/L (42-121); ANION GAP 18 (5-13); ASPARTATE AMINO TRANSFERASE 26 IU/L (15-46); BILIRUBIN,INDIRECT 0.5 mg/dl (0-1.1); BILIRUBIN,TOTAL 0.5 mg/dl (0.2-1.3); BLOOD UREA NITROGEN 34 mg/dl (7-20); CARBON DIOXIDE 18 mmol/L (21-31); CHLORIDE 97 mmol/L (97-110); CREATININE 1.79 mg/dl (0.61-1.24); Estimated GFR 38 mL/min (>60); LIPASE 16 U/L (23-300); SODIUM 133 mmol/L (135-144); TOTAL PROTEIN 7.6 g/dl (6.1-8.1)
[2018-03-16 08:16] LABS: GLUCOSE 645 mg/dl (70-220); POTASSIUM 6.6 mmol/L (3.5-5.1)
[2018-03-16] MEDS ORDERED: SODIUM CHLORIDE 23.4% 77 MEQ, POTASSIUM CHLORIDE 40 MEQ in DEXTROSE 10% 1,000 ML IV ×2 (08:23→12:30)
[2018-03-16] MEDS ORDERED: SODIUM CHLORIDE 23.4% 77 MEQ, POTASSIUM CHLORIDE 30 MEQ in DEXTROSE 10% 1,000 ML IV (08:23)
[2018-03-16] MEDS ORDERED: SOD CHLORIDE 0.9% 1,000 ML IV (08:23)
[2018-03-16] MEDS ORDERED: SODIUM CHLORIDE 23.4% 77 MEQ in DEXTROSE 10% 1,000 ML IV ×2 (08:23→12:30)
[2018-03-16] MEDS ORDERED: POTASSIUM CHLORIDE 40 MEQ in SOD CHLORIDE 0.9% 1,000 ML IV ×2 (08:23→12:30)
[2018-03-16] MEDS ORDERED: POTASSIUM CHLORIDE 30 MEQ in SOD CHLORIDE 0.9% 1,000 ML IV (08:23)
[2018-03-16] MEDS ORDERED: INSULIN REGULAR, HUMAN 100 UNIT in SOD CHLORIDE 0.9% 100 ML IV (08:30)
[2018-03-16] MEDS ORDERED: DEXTROSE 50% 50 ML SYRINGE IV ×9 (08:30→22:00)
[2018-03-16 08:39] LABS: PHOSPHORUS 4.9 mg/dl (2.5-4.9)
[2018-03-16 08:39] LABS: MAGNESIUM 2.3 mg/dl (1.7-2.5)
[2018-03-16] MEDS ORDERED: ONDANSETRON 4 MG INJ IV ×2 (09:00→10:30)
[2018-03-16] MEDS ORDERED: ACETAMINOPHEN 325 MG TAB PO (09:00)
[2018-03-16 09:19] LABS: HEMOGLOBIN A1C 8.3 % (0-5.9)
[2018-03-16] MEDS: SODIUM CHLORIDE 0.9% 1L BAG IV* (09:35)
[2018-03-16] MEDS: ONDANSETRON 4 MG INJ IV (09:37)
[2018-03-16] MEDS: morphine 4 MG/ML VIAL IV (09:39)
[2018-03-16] MEDS: NA BICARBONATE 8.4% 50 ML SYG IV (09:40)
[2018-03-16] MEDS: CA CHLORIDE 10% 10 ML SYRINGE IV (09:42)
[2018-03-16 09:43] LABS: MODE ROOM AIR; MetHgb Venous 0.2 %; Sample Type Blood venous; Site VENOUS LINE; Venous COHb 0.8 %; Venous Fraction OxyHgb 50.6 %; Venous Oxygen Sat 51.1 mmHG (55.0-75.0); Venous Total Hemglobin 11.7 g/dl
[2018-03-16] MEDS: PIPER-TAZO 3.375 GM IV (PMX) 100 ML IVPB ×2 (09:46→17:44)
[2018-03-16] MEDS: FUROSEMIDE 40 MG INJ IV (10:17)
[2018-03-16] MEDS: INSULIN REGULAR, HUMAN 100 UNIT/1 ML 3ML VIAL IVP (10:26)
[2018-03-16] MEDS ORDERED: MAGNESIUM HYDROXIDE 30ML CUP PO (10:30)
[2018-03-16] MEDS ORDERED: ALBUTEROL/IPRATROPIUM (NEB) 3 ML AMP NEB (10:30)
[2018-03-16] MEDS ORDERED: ACETAMINOPHEN 650MG/20.3ML CUP PO (10:30)
[2018-03-16] MEDS ORDERED: ACCU-CHEK XX ×2 (10:30→22:00)
[2018-03-16] MEDS ORDERED: DOCUSATE SODIUM 100 MG CAP PO (10:30)
[2018-03-16] MEDS ORDERED: INSULIN HUMAN REGULAR 100 UNIT in SOD CHLORIDE 0.9% 99 ML IV ×2 (10:30→22:00)
[2018-03-16 10:45] LABS: MODE ROOM AIR; MetHgb Venous 0.3 %; Sample Type Blood venous; Site VENOUS LINE; Venous COHb 0.3 %; Venous Fraction OxyHgb 73.3 %; Venous Oxygen Sat 73.7 mmHG (55.0-75.0)
[2018-03-16] MEDS: VANCOMYCIN 1 GM (PMX) 250 ML IVPB (10:52)
[2018-03-16] MEDS: NA POLYST SULFON 15 GM/60 ML BTL PO (10:59)
[2018-03-16] MEDS: SOD CHLORIDE 0.9% 1,000 ML IV ×5 (11:50→22:50)
[2018-03-16] MEDS: LACTATED RINGER'S 900 ML IV (11:55)
[2018-03-16] MEDS: ALBUTEROL 0.5% (NEB) 2.5 MG/0.5 ML AMP INH (12:06)
[2018-03-16] MEDS: LORAZEPAM 2 MG INJ IV (12:31)
[2018-03-16] MEDS: ACCU-CHEK XX ×10 (12:40→23:00)
[2018-03-16] MEDS: INSULIN REGULAR, HUMAN 100 UNIT in SOD CHLORIDE 0.9% 100 ML IV (13:42)
[2018-03-16 14:28] LABS: ANION GAP 24 (5-13); BLOOD UREA NITROGEN 37 mg/dl (7-20); CALCIUM 9.3 mg/dl (8.4-10.2); CARBON DIOXIDE 11 mmol/L (21-31); CHLORIDE 103 mmol/L (97-110); CREATININE 1.94 mg/dl (0.61-1.24); Estimated GFR 34 mL/min (>60); MAGNESIUM 2.1 mg/dl (1.7-2.5); PHOSPHORUS 6.7 mg/dl (2.5-4.9); POTASSIUM 5.7 mmol/L (3.5-5.1); SODIUM 138 mmol/L (135-144)
[2018-03-16 14:34] LABS: LACTIC ACID 5.8 mmol/L (0.5-2.0)
[2018-03-16 14:40] LABS: GLUCOSE 749 mg/dl (70-220)
[2018-03-16] MEDS: LIDOCAINE 1% (MPF) 5 ML VIAL SC (15:20)
[2018-03-16 16:56] LABS: MODE NASAL CANNULA; MetHgb Venous 0.3 %; Sample Type Blood venous; Site VENOUS LINE; Venous COHb 0 %; Venous Fraction OxyHgb 78.4 %; Venous Oxygen Sat 78.6 mmHG (55.0-75.0); Venous Total Hemglobin 9.3 g/dl
[2018-03-16 17:01] LABS: ANION GAP 22 (5-13); BLOOD UREA NITROGEN 36 mg/dl (7-20); CALCIUM 9.2 mg/dl (8.4-10.2); CARBON DIOXIDE 15 mmol/L (21-31); CHLORIDE 102 mmol/L (97-110); CREATININE 2.02 mg/dl (0.61-1.24); Estimated GFR 33 mL/min (>60); MAGNESIUM 2.1 mg/dl (1.7-2.5); POTASSIUM 4.7 mmol/L (3.5-5.1); SODIUM 139 mmol/L (135-144)
[2018-03-16 17:11] LABS: GLUCOSE 619 mg/dl (70-220)
[2018-03-16 17:20] LABS: ADD UMIC NO; UR ASCORBIC ACID NEGATIVE (NEGATIVE); UR BILIRUBIN (Dip) NEGATIVE (NEGATIVE); UR BLOOD (Dip) NEGATIVE (NEGATIVE); UR CLARITY CLEAR (CLEAR); UR COLOR COLORLESS (YELLOW); UR GLUCOSE (Dip) 3+ mg/dL (NEGATIVE); UR KETONES (Dip) 1+ mg/dL (NEGATIVE); UR LEUKOCYTE ESTERASE (Dip) NEGATIVE Leu/ul (NEGATIVE); UR NITRITE (Dip) NEGATIVE (NEGATIVE); UR SPECIFIC GRAVITY (Dip) 1.009 (1.003-1.030); UR TOTAL PROTEIN (Dip) NEGATIVE (NEGATIVE); UR UROBILINOGEN (Dip) NEGATIVE (NEGATIVE)
[2018-03-16] MEDS: POTASSIUM CHLORIDE 30 MEQ in SOD CHLORIDE 0.9% 1,000 ML IV (18:36)
[2018-03-16 19:46] LABS: AADO2 Venous 37.3 mmHg; Allen Test ACCEPTAB; MODE NASAL CANNULA; MetHgb Venous 0.3 %; Site Right Radial; Venous COHb 0.3 %; Venous Fraction OxyHgb 97.3 %; Venous Oxygen Sat 97.9 mmHG (55.0-75.0); Venous Total Hemglobin 9.4 g/dl
[2018-03-16] MEDS: INSULIN GLARGINE [LANTus] (100 UNITS/ML) SYG SC (20:00)
[2018-03-16] MEDS ORDERED: HEPARIN 5,000 UNIT/0.5 ML VIAL (20:54)
[2018-03-16 21:02] LABS: ANION GAP 14 (5-13); BLOOD UREA NITROGEN 37 mg/dl (7-20); CARBON DIOXIDE 20 mmol/L (21-31); CHLORIDE 109 mmol/L (97-110); CREATININE 1.98 mg/dl (0.61-1.24); Estimated GFR 34 mL/min (>60); GLUCOSE 362 mg/dl (70-220); PHOSPHORUS 4.1 mg/dl (2.5-4.9); POTASSIUM 4.5 mmol/L (3.5-5.1); SODIUM 143 mmol/L (135-144)
[2018-03-16] MEDS: HEPARIN 5,000 UNIT/1 ML VIAL SC (21:15)
[2018-03-16] MEDS: SODIUM CHLORIDE 23.4% 77 MEQ, POTASSIUM CHLORIDE 30 MEQ in DEXTROSE 10% 1,000 ML IV (21:19)
[2018-03-16 22:53] LABS: AADO2 Arterial 37.3 mmHg (7.0-24.0); Allen Test ACCEPTAB; Arterial Base Excess -6.4 mmol/L (-3.0-3); Arterial Blood Gas Oxygen Sat 97.9 mmHG (95.0-98.0); Arterial COHb 0.3 % (0.0-3.0); Arterial Fraction of Oxyhgb 97.3 % (93.0-99.0); Arterial HCO3 19.4 mmol/L (22.0-26.0); Arterial MetHb 0.3 % (0.0-1.5); Arterial Total Hemglobin 9.4 g/dl (12.0-18.0); Arterial pCO2 39.8 mmhg (35-45); MODE NASAL CANNULA; Site Right Radial
[2018-03-16] MEDS: INSULIN HUMAN REGULAR 100 UNIT in SOD CHLORIDE 0.9% 99 ML IV (23:27)
[2018-03-17] MEDS: ACCU-CHEK XX ×17 (00:32→23:02)
[2018-03-17] MEDS: PIPER-TAZO 3.375 GM IV (PMX) 100 ML IVPB ×3 (01:08→17:10)
[2018-03-17] MEDS: SOD CHLORIDE 0.9% 1,000 ML IV (01:17)
[2018-03-17 03:13] LABS: ANION GAP 5 (5-13); BLOOD UREA NITROGEN 32 mg/dl (7-20); CALCIUM 8.7 mg/dl (8.4-10.2); CARBON DIOXIDE 27 mmol/L (21-31); CHLORIDE 115 mmol/L (97-110); CREATININE 1.63 mg/dl (0.61-1.24); Estimated GFR 42 mL/min (>60); GLUCOSE 96 mg/dl (70-220); POTASSIUM 3.5 mmol/L (3.5-5.1); SODIUM 147 mmol/L (135-144)
[2018-03-17 03:21] LABS: AADO2 Arterial 24.1 mmHg (7.0-24.0); Allen Test ACCEPTAB; Arterial Base Excess -0.3 mmol/L (-3.0-3); Arterial Blood Gas Oxygen Sat 95.9 mmHG (95.0-98.0); Arterial COHb 0.3 % (0.0-3.0); Arterial Fraction of Oxyhgb 95.3 % (93.0-99.0); Arterial HCO3 24.7 mmol/L (22.0-26.0); Arterial MetHb 0.3 % (0.0-1.5); Arterial Total Hemglobin 8.9 g/dl (12.0-18.0); Arterial pCO2 42.1 mmhg (35-45); MODE ROOM AIR; Site Right Radial
[2018-03-17] MEDS ORDERED: DEXTROSE 50% 50 ML SYRINGE IV ×2 (04:00)
[2018-03-17] MEDS ORDERED: GLUCAGON 1 MG INJ IM (04:00)
[2018-03-17] MEDS ORDERED: GLUCOSE GEL 15 GRAM TUBE PO ×2 (04:00)
[2018-03-17] MEDS ORDERED: GLUCOSE GEL 15 GRAM TUBE BUCCAL (04:00)
[2018-03-17] MEDS: INSULIN ASPART [NOVOLOG] 3 ML PEN SC ×3 (05:00→17:13)
[2018-03-17 05:09] LABS: ADD MAN DIFF? NO
[2018-03-17] MEDS: PANTOPRAZOLE 40 MG INJ IV (05:10)
[2018-03-17] MEDS: DEXTROSE 5%-0.45% NACL 1,000 ML IV ×2 (05:10→09:30)
[2018-03-17 05:13] LABS: WHITE BLOOD COUNT 15.6 10^3/ul (4.8-10.8)
[2018-03-17 05:13] LABS: ABNORMAL IP MESSAGE 1; BASOPHIL # 0.1 10^3/ul (0.0-0.1); BASOPHILS % 0.3 % (0.0-2.0); EOSINOPHILS # 0.2 10^3/ul (0.0-0.5); HEMATOCRIT 23.3 % (42.0-52.0); HEMOGLOBIN 7.4 g/dl (14.0-18.0); LYMPHOCYTES % 6.2 % (15.0-51.0); MEAN CORPUSCULAR HGB CONC 31.8 g/dl (32.0-37.0); MEAN CORPUSCULAR VOLUME 91.4 fl (82.0-101.0); MEAN PLATELET VOLUME 11.5 fl (7.4-10.4); MONOCYTE # 1.7 10^3/ul (0.3-0.9); MONOCYTES % 10.7 % (0.0-11.0); NEUTROPHIL # 12.7 10^3/ul (1.6-7.5); NEUTROPHILS % 81.4 % (39.0-77.0); PLATELET COUNT 324 10^3/UL (140-415); POSITIVE DIFF @See below; RED BLOOD COUNT 2.55 10^6/ul (4.70-6.10); RED CELL DISTRIBUTION WIDTH 13.8 % (11.5-14.5)
[2018-03-17 08:01] LABS: RETICULOCYTE RBC 2.74
[2018-03-17 08:01] LABS: RETICULOCYTE COUNT # 0.066 X10^6 (0.020-0.110); RETICULOCYTE COUNT % 2.4 % (0.5-1.5)
[2018-03-17] MEDS ORDERED: HEPARIN 5,000 UNIT/0.5 ML VIAL ×2 (08:24→21:24)
[2018-03-17 08:27] LABS: ANION GAP 13 (5-13); BLOOD UREA NITROGEN 28 mg/dl (7-20); CALCIUM 8.2 mg/dl (8.4-10.2); CARBON DIOXIDE 19 mmol/L (21-31); CHLORIDE 111 mmol/L (97-110); CREATININE 1.51 mg/dl (0.61-1.24); Estimated GFR 46 mL/min (>60); GLUCOSE 331 mg/dl (70-220); SODIUM 143 mmol/L (135-144)
[2018-03-17 08:29] LABS: ALANINE AMINOTRANSFERASE 18 IU/L (13-69); ALBUMIN 3.1 g/dl (3.3-4.9); ALKALINE PHOSPHATASE 154 IU/L (42-121); ASPARTATE AMINO TRANSFERASE 27 IU/L (15-46); BILIRUBIN,INDIRECT 0.1 mg/dl (0-1.1); BILIRUBIN,TOTAL 0.1 mg/dl (0.2-1.3); IRON 28 ug/dl (35-150); TOTAL PROTEIN 5.6 g/dl (6.1-8.1)
[2018-03-17 08:35] LABS: OCCULT BLOOD STOOL NEGATIVE (NEGATIVE)
[2018-03-17 08:38] LABS: % IRON SATURATION 13 % SAT (22-52); TOTAL IRON BINDING CAPACITY 221 ug/dl (241-421)
[2018-03-17] MEDS ORDERED: SOD CHLORIDE 0.9% 1,000 ML IV (09:00)
[2018-03-17] MEDS ORDERED: INSULIN GLARGINE [LANTus] (100 UNITS/ML) SYG SC ×2 (09:00→20:00)
[2018-03-17] MEDS: ASPIRIN (EC) 81 MG TAB PO (09:34)
[2018-03-17] MEDS: DOCUSATE SODIUM 100 MG CAP PO ×2 (09:34→21:56)
[2018-03-17] MEDS: FINASTERIDE 5 MG TAB PO (09:34)
[2018-03-17] MEDS: GABAPENTIN 400 MG CAP PO ×3 (09:34→21:56)
[2018-03-17 09:35] LABS: FOLATE 5.7 ng/ml (2.8-20.0)
[2018-03-17] MEDS: HEPARIN 5,000 UNIT/1 ML VIAL SC ×2 (09:35→22:02)
[2018-03-17] MEDS: INSULIN HUMAN REGULAR 100 UNIT in SOD CHLORIDE 0.9% 99 ML IV (10:34)
[2018-03-17] MEDS: SOD CHLORIDE 0.9% 250 ML IV* (10:43)
[2018-03-17] MEDS: DIVALPROEX (EC) 250 MG TAB PO ×2 (11:15→21:57)
[2018-03-17] MEDS ORDERED: INSULIN ASPART [NOVOLOG] 3 ML PEN SC (11:30)
[2018-03-17 13:22] LABS: IMMEDIATE SPIN CROSSMATCH 1 2
[2018-03-17] MEDS: BALSAM PERU/CASTOR OIL 60 GM TUBE TOP (13:33)
[2018-03-17] MEDS: traZODone 50 MG TAB PO (21:56)
[2018-03-17] MEDS: QUETIAPINE 25 MG TAB PO (21:56)
[2018-03-17] MEDS: TAMSULOSIN (SR) 0.4 MG CAP PO (21:56)
[2018-03-17] MEDS: INSULIN GLARGINE [LANTus] (100 UNITS/ML) SYG SC (22:01)
[2018-03-17 23:11] LABS: ANION GAP 7 (5-13); BLOOD UREA NITROGEN 18 mg/dl (7-20); CALCIUM 7.6 mg/dl (8.4-10.2); CARBON DIOXIDE 25 mmol/L (21-31); CHLORIDE 107 mmol/L (97-110); CREATININE 1.18 mg/dl (0.61-1.24); Estimated GFR > 60 mL/min (>60); GLUCOSE 294 mg/dl (70-220); POTASSIUM 3.3 mmol/L (3.5-5.1); SODIUM 139 mmol/L (135-144)
[2018-03-18] MEDS: PIPER-TAZO 3.375 GM IV (PMX) 100 ML IVPB ×3 (02:41→18:03)
[2018-03-18] MEDS: PANTOPRAZOLE 40 MG INJ IV (05:45)
[2018-03-18] MEDS: INSULIN ASPART [NOVOLOG] 3 ML PEN SC ×6 (05:48→21:00)
[2018-03-18] MEDS ORDERED: HEPARIN 5,000 UNIT/0.5 ML VIAL ×2 (08:20→20:43)
[2018-03-18 08:24] LABS: ADD MAN DIFF? NO
[2018-03-18] MEDS: ASPIRIN (EC) 81 MG TAB PO (08:27)
[2018-03-18] MEDS: GABAPENTIN 400 MG CAP PO ×3 (08:27→20:55)
[2018-03-18] MEDS: DIVALPROEX (EC) 250 MG TAB PO ×2 (08:27→20:55)
[2018-03-18] MEDS: DOCUSATE SODIUM 100 MG CAP PO ×2 (08:27→20:55)
[2018-03-18] MEDS: FINASTERIDE 5 MG TAB PO (08:27)
[2018-03-18 08:28] LABS: WHITE BLOOD COUNT 10.1 10^3/ul (4.8-10.8)
[2018-03-18 08:28] LABS: BASOPHIL # 0.1 10^3/ul (0.0-0.1); BASOPHILS % 0.8 % (0.0-2.0); EOSINOPHILS # 0.4 10^3/ul (0.0-0.5); EOSINOPHILS % 4.2 % (0.0-7.0); HEMATOCRIT 33.2 % (42.0-52.0); HEMOGLOBIN 10.5 g/dl (14.0-18.0); LYMPHOCYTES # 1.7 10^3/ul (0.8-2.9); LYMPHOCYTES % 16.3 % (15.0-51.0); MEAN CORPUSCULAR HEMOGLOBIN 28.2 pg (29.0-33.0); MEAN CORPUSCULAR HGB CONC 31.6 g/dl (32.0-37.0); MEAN CORPUSCULAR VOLUME 89.2 fl (82.0-101.0); MEAN PLATELET VOLUME 11.1 fl (7.4-10.4); MONOCYTE # 0.8 10^3/ul (0.3-0.9); MONOCYTES % 7.5 % (0.0-11.0); NEUTROPHIL # 7.2 10^3/ul (1.6-7.5); NEUTROPHILS % 70.9 % (39.0-77.0); PLATELET COUNT 293 10^3/UL (140-415); RED BLOOD COUNT 3.72 10^6/ul (4.70-6.10); RED CELL DISTRIBUTION WIDTH 15.5 % (11.5-14.5)
[2018-03-18] MEDS: HEPARIN 5,000 UNIT/1 ML VIAL SC ×2 (08:39→21:31)
[2018-03-18] MEDS: BALSAM PERU/CASTOR OIL 60 GM TUBE TOP (08:47)
[2018-03-18 08:48] LABS: ALANINE AMINOTRANSFERASE 25 IU/L (13-69); ALBUMIN 2.7 g/dl (3.3-4.9); ALBUMIN/GLOBULIN RATIO 0.96; ALKALINE PHOSPHATASE 146 IU/L (42-121); ANION GAP 7 (5-13); ASPARTATE AMINO TRANSFERASE 28 IU/L (15-46); BILIRUBIN,INDIRECT 0.4 mg/dl (0-1.1); BILIRUBIN,TOTAL 0.4 mg/dl (0.2-1.3); BLOOD UREA NITROGEN 18 mg/dl (7-20); CALCIUM 8.1 mg/dl (8.4-10.2); CARBON DIOXIDE 25 mmol/L (21-31); CHLORIDE 110 mmol/L (97-110); CREATININE 1.14 mg/dl (0.61-1.24); Estimated GFR > 60 mL/min (>60); GLUCOSE 157 mg/dl (70-220); POTASSIUM 3.9 mmol/L (3.5-5.1); SODIUM 142 mmol/L (135-144); TOTAL PROTEIN 5.5 g/dl (6.1-8.1)
[2018-03-18] MEDS ORDERED: INSULIN GLARGINE [LANTus] (100 UNITS/ML) SYG SC (20:00)
[2018-03-18] MEDS: QUETIAPINE 25 MG TAB PO (20:54)
[2018-03-18] MEDS: traZODone 50 MG TAB PO (20:55)
[2018-03-18] MEDS: TAMSULOSIN (SR) 0.4 MG CAP PO (20:59)
[2018-03-18] MEDS: INSULIN GLARGINE [LANTus] (100 UNITS/ML) SYG SC (21:31)
[2018-03-18] MEDS: hydrALAzine 20 MG INJ IV (22:11)
[2018-03-18] MEDS: ZOLPIDEM 5 MG TAB PO (22:28)
[2018-03-19] MEDS: PIPER-TAZO 3.375 GM IV (PMX) 100 ML IVPB ×3 (01:28→18:22)
[2018-03-19] MEDS: PANTOPRAZOLE 40 MG INJ IV (05:26)
[2018-03-19 07:22] LABS: ADD MAN DIFF? NO
[2018-03-19] MEDS: INSULIN ASPART [NOVOLOG] 3 ML PEN SC ×7 (07:25→20:23)
[2018-03-19 07:31] LABS: WHITE BLOOD COUNT 7.5 10^3/ul (4.8-10.8)
[2018-03-19 07:31] LABS: BASOPHIL # 0.1 10^3/ul (0.0-0.1); BASOPHILS % 0.8 % (0.0-2.0); EOSINOPHILS # 0.4 10^3/ul (0.0-0.5); EOSINOPHILS % 4.8 % (0.0-7.0); HEMOGLOBIN 11.2 g/dl (14.0-18.0); LYMPHOCYTES # 1.6 10^3/ul (0.8-2.9); LYMPHOCYTES % 20.9 % (15.0-51.0); MEAN CORPUSCULAR HEMOGLOBIN 28.6 pg (29.0-33.0); MEAN CORPUSCULAR VOLUME 89.3 fl (82.0-101.0); MONOCYTE # 0.6 10^3/ul (0.3-0.9); NEUTROPHIL # 4.9 10^3/ul (1.6-7.5); NEUTROPHILS % 65.1 % (39.0-77.0); PLATELET COUNT 277 10^3/UL (140-415); RED BLOOD COUNT 3.92 10^6/ul (4.70-6.10); RED CELL DISTRIBUTION WIDTH 14.9 % (11.5-14.5)
[2018-03-19 07:47] LABS: MAGNESIUM 1.9 mg/dl (1.7-2.5)
[2018-03-19 07:47] LABS: PHOSPHORUS 2.4 mg/dl (2.5-4.9)
[2018-03-19] MEDS ORDERED: HEPARIN 5,000 UNIT/0.5 ML VIAL ×2 (08:08→20:10)
[2018-03-19 08:09] LABS: ALANINE AMINOTRANSFERASE 23 IU/L (13-69); ALBUMIN 2.8 g/dl (3.3-4.9); ALBUMIN/GLOBULIN RATIO 0.84; ALKALINE PHOSPHATASE 149 IU/L (42-121); ANION GAP 7 (5-13); ASPARTATE AMINO TRANSFERASE 29 IU/L (15-46); BILIRUBIN,INDIRECT 0.4 mg/dl (0-1.1); BILIRUBIN,TOTAL 0.4 mg/dl (0.2-1.3); BLOOD UREA NITROGEN 13 mg/dl (7-20); CALCIUM 8.1 mg/dl (8.4-10.2); CARBON DIOXIDE 26 mmol/L (21-31); CHLORIDE 112 mmol/L (97-110); CREATININE 0.96 mg/dl (0.61-1.24); Estimated GFR > 60 mL/min (>60); GLUCOSE 64 mg/dl (70-220); POTASSIUM 3.2 mmol/L (3.5-5.1); SODIUM 145 mmol/L (135-144); TOTAL PROTEIN 6.1 g/dl (6.1-8.1)
[2018-03-19] MEDS: FINASTERIDE 5 MG TAB PO (08:14)
[2018-03-19] MEDS: DIVALPROEX (EC) 250 MG TAB PO ×2 (08:14→20:15)
[2018-03-19] MEDS: DOCUSATE SODIUM 100 MG CAP PO ×2 (08:14→20:15)
[2018-03-19] MEDS: GABAPENTIN 400 MG CAP PO ×3 (08:14→20:15)
[2018-03-19] MEDS: ASPIRIN (EC) 81 MG TAB PO (08:14)
[2018-03-19] MEDS: BALSAM PERU/CASTOR OIL 60 GM TUBE TOP (08:14)
[2018-03-19] MEDS: HEPARIN 5,000 UNIT/1 ML VIAL SC ×2 (08:20→20:18)
[2018-03-19] MEDS: POTASSIUM CHLORIDE (SR) 20 MEQ TAB PO (12:52)
[2018-03-19] MEDS: LOSARTAN 50 MG TAB PO (12:53)
[2018-03-19] MEDS: AMLODIPINE 5 MG TAB PO (12:54)
[2018-03-19] MEDS: QUETIAPINE 25 MG TAB PO (20:15)
[2018-03-19] MEDS: traZODone 50 MG TAB PO (20:15)
[2018-03-19] MEDS: TAMSULOSIN (SR) 0.4 MG CAP PO (20:21)
[2018-03-19] MEDS: INSULIN GLARGINE [LANTus] (100 UNITS/ML) SYG SC (20:37)
[2018-03-20] MEDS: PIPER-TAZO 3.375 GM IV (PMX) 100 ML IVPB ×3 (01:18→18:05)
[2018-03-20] MEDS: PANTOPRAZOLE 40 MG INJ IV (05:37)
[2018-03-20 06:08] LABS: ADD MAN DIFF? NO
[2018-03-20 06:15] LABS: BASOPHILS % 0.6 % (0.0-2.0); EOSINOPHILS # 0.3 10^3/ul (0.0-0.5); EOSINOPHILS % 3.9 % (0.0-7.0); HEMOGLOBIN 11.3 g/dl (14.0-18.0); LYMPHOCYTES # 1.8 10^3/ul (0.8-2.9); LYMPHOCYTES % 25.7 % (15.0-51.0); MEAN CORPUSCULAR HEMOGLOBIN 28.3 pg (29.0-33.0); MEAN CORPUSCULAR HGB CONC 31.4 g/dl (32.0-37.0); MEAN CORPUSCULAR VOLUME 90.2 fl (82.0-101.0); MONOCYTE # 0.6 10^3/ul (0.3-0.9); MONOCYTES % 8.6 % (0.0-11.0); NEUTROPHIL # 4.3 10^3/ul (1.6-7.5); NEUTROPHILS % 60.9 % (39.0-77.0); PLATELET COUNT 268 10^3/UL (140-415); RED BLOOD COUNT 3.99 10^6/ul (4.70-6.10); RED CELL DISTRIBUTION WIDTH 14.3 % (11.5-14.5)
[2018-03-20 06:45] LABS: MAGNESIUM 1.8 mg/dl (1.7-2.5)
[2018-03-20 06:45] LABS: PHOSPHORUS 2.8 mg/dl (2.5-4.9)
[2018-03-20 06:53] LABS: ALANINE AMINOTRANSFERASE 24 IU/L (13-69); ALBUMIN 2.9 g/dl (3.3-4.9); ALBUMIN/GLOBULIN RATIO 0.96; ALKALINE PHOSPHATASE 137 IU/L (42-121); ANION GAP 9 (5-13); ASPARTATE AMINO TRANSFERASE 27 IU/L (15-46); BILIRUBIN,INDIRECT 0.2 mg/dl (0-1.1); BILIRUBIN,TOTAL 0.2 mg/dl (0.2-1.3); BLOOD UREA NITROGEN 15 mg/dl (7-20); CALCIUM 8.2 mg/dl (8.4-10.2); CARBON DIOXIDE 28 mmol/L (21-31); CHLORIDE 109 mmol/L (97-110); CREATININE 1.06 mg/dl (0.61-1.24); Estimated GFR > 60 mL/min (>60); GLUCOSE 52 mg/dl (70-220); POTASSIUM 3.5 mmol/L (3.5-5.1); SODIUM 146 mmol/L (135-144); TOTAL PROTEIN 5.9 g/dl (6.1-8.1)
[2018-03-20] MEDS: INSULIN ASPART [NOVOLOG] 3 ML PEN SC ×7 (07:25→20:17)
[2018-03-20] MEDS ORDERED: HEPARIN 5,000 UNIT/0.5 ML VIAL ×2 (08:06→19:59)
[2018-03-20] MEDS: ASPIRIN (EC) 81 MG TAB PO (08:16)
[2018-03-20] MEDS: GABAPENTIN 400 MG CAP PO ×3 (08:16→20:06)
[2018-03-20] MEDS: FINASTERIDE 5 MG TAB PO (08:16)
[2018-03-20] MEDS: LOSARTAN 50 MG TAB PO (08:17)
[2018-03-20] MEDS: AMLODIPINE 5 MG TAB PO (08:17)
[2018-03-20] MEDS: DIVALPROEX (EC) 250 MG TAB PO ×2 (08:17→20:06)
[2018-03-20] MEDS: HEPARIN 5,000 UNIT/1 ML VIAL SC ×2 (08:22→20:14)
[2018-03-20] MEDS: DOCUSATE SODIUM 100 MG CAP PO ×2 (08:24→20:06)
[2018-03-20] MEDS: BALSAM PERU/CASTOR OIL 60 GM TUBE TOP (08:29)
[2018-03-20] MEDS: hydrALAzine 20 MG INJ IV ×2 (15:02→18:34)
[2018-03-20] MEDS: TAMSULOSIN (SR) 0.4 MG CAP PO (20:06)
[2018-03-20] MEDS: QUETIAPINE 25 MG TAB PO (20:06)
[2018-03-20] MEDS: traZODone 50 MG TAB PO (20:06)
[2018-03-20] MEDS: INSULIN GLARGINE [LANTus] (100 UNITS/ML) SYG SC (20:14)
[2018-03-21] MEDS: PIPER-TAZO 3.375 GM IV (PMX) 100 ML IVPB ×3 (02:07→18:44)
[2018-03-21] MEDS: hydrALAzine 20 MG INJ IV (04:02)
[2018-03-21] MEDS: PANTOPRAZOLE (EC) 40 MG TAB PO (05:44)
[2018-03-21 06:30] LABS: ADD MAN DIFF? NO
[2018-03-21 06:39] LABS: WHITE BLOOD COUNT 6.5 10^3/ul (4.8-10.8)
[2018-03-21 06:39] LABS: BASOPHIL # 0.1 10^3/ul (0.0-0.1); BASOPHILS % 0.8 % (0.0-2.0); EOSINOPHILS # 0.3 10^3/ul (0.0-0.5); EOSINOPHILS % 4.1 % (0.0-7.0); HEMATOCRIT 36.9 % (42.0-52.0); HEMOGLOBIN 11.6 g/dl (14.0-18.0); LYMPHOCYTES # 1.3 10^3/ul (0.8-2.9); LYMPHOCYTES % 20.6 % (15.0-51.0); MEAN CORPUSCULAR HEMOGLOBIN 28.1 pg (29.0-33.0); MEAN CORPUSCULAR HGB CONC 31.4 g/dl (32.0-37.0); MEAN CORPUSCULAR VOLUME 89.3 fl (82.0-101.0); MONOCYTE # 0.5 10^3/ul (0.3-0.9); MONOCYTES % 7.2 % (0.0-11.0); NEUTROPHIL # 4.4 10^3/ul (1.6-7.5); PLATELET COUNT 242 10^3/UL (140-415); RED BLOOD COUNT 4.13 10^6/ul (4.70-6.10); RED CELL DISTRIBUTION WIDTH 14.1 % (11.5-14.5)
[2018-03-21 07:02] LABS: PHOSPHORUS 2.8 mg/dl (2.5-4.9)
[2018-03-21 07:02] LABS: MAGNESIUM 1.7 mg/dl (1.7-2.5)
[2018-03-21 07:13] LABS: ANION GAP 8 (5-13); BLOOD UREA NITROGEN 16 mg/dl (7-20); CARBON DIOXIDE 25 mmol/L (21-31); CHLORIDE 108 mmol/L (97-110); CREATININE 1.03 mg/dl (0.61-1.24); Estimated GFR > 60 mL/min (>60); GLUCOSE 221 mg/dl (70-220); POTASSIUM 3.9 mmol/L (3.5-5.1); SODIUM 141 mmol/L (135-144)
[2018-03-21] MEDS: INSULIN ASPART [NOVOLOG] 3 ML PEN SC ×7 (07:25→21:00)
[2018-03-21] MEDS: HEPARIN 5,000 UNIT/1 ML VIAL SC ×2 (09:00→20:58)
[2018-03-21] MEDS ORDERED: ONDANSETRON 4 MG INJ IV (09:00)
[2018-03-21] MEDS ORDERED: HYDROmorphONE 1 MG/5 ML IV SYRINGE IV ×2 (09:00)
[2018-03-21] MEDS: BALSAM PERU/CASTOR OIL 60 GM TUBE TOP (09:00)
[2018-03-21] MEDS ORDERED: FENTAnyl 50 MCG/ML VIAL IV (09:00)
[2018-03-21] MEDS ORDERED: MEPERIDINE 25 MG INJ IV (09:00)
[2018-03-21] MEDS ORDERED: DIPHENHYDRAMINE 50 MG INJ IV (09:00)
[2018-03-21] MEDS ORDERED: PROCHLORPERAZINE 10 MG INJ IV (09:00)
[2018-03-21] MEDS ORDERED: ROCURONIUM 50 MG INJ (09:01)
[2018-03-21] MEDS ORDERED: LIDOCAINE 2% (SDV) 5 ML INJ (09:01)
[2018-03-21] MEDS ORDERED: PROPOFOL 20 ML (09:01)
[2018-03-21] MEDS ORDERED: IOHEXOL 300MG/ML 30 ML BTL (09:21)
[2018-03-21] MEDS ORDERED: SUGAMMADEX SODIUM 200 MG/2 ML VIAL IV (09:36)
[2018-03-21] MEDS: ASPIRIN (EC) 81 MG TAB PO (11:44)
[2018-03-21] MEDS: GABAPENTIN 400 MG CAP PO ×3 (11:44→20:55)
[2018-03-21] MEDS: DIVALPROEX (EC) 250 MG TAB PO ×2 (11:44→20:55)
[2018-03-21] MEDS: DOCUSATE SODIUM 100 MG CAP PO ×2 (11:45→20:55)
[2018-03-21] MEDS: AMLODIPINE 10 MG TAB PO (11:45)
[2018-03-21] MEDS: FINASTERIDE 5 MG TAB PO (11:45)
[2018-03-21 12:06] LABS: C-PEPTIDE <0.10 ng/mL (0.80-3.85)
[2018-03-21] MEDS ORDERED: HEPARIN 5,000 UNIT/0.5 ML VIAL (20:45)
[2018-03-21] MEDS: QUETIAPINE 25 MG TAB PO (20:55)
[2018-03-21] MEDS: LOSARTAN 50 MG TAB PO (20:55)
[2018-03-21] MEDS: INSULIN GLARGINE [LANTus] (100 UNITS/ML) SYG SC (20:58)
[2018-03-21] MEDS: traZODone 50 MG TAB PO (21:03)
[2018-03-21] MEDS: TAMSULOSIN (SR) 0.4 MG CAP PO (21:03)
[2018-03-22] MEDS: PIPER-TAZO 3.375 GM IV (PMX) 100 ML IVPB ×3 (02:23→18:00)
[2018-03-22] MEDS: PANTOPRAZOLE (EC) 40 MG TAB PO (05:34)
[2018-03-22 06:35] LABS: ADD MAN DIFF? NO
[2018-03-22 06:41] LABS: WHITE BLOOD COUNT 6.6 10^3/ul (4.8-10.8)
[2018-03-22 06:41] LABS: BASOPHILS % 0.6 % (0.0-2.0); EOSINOPHILS # 0.3 10^3/ul (0.0-0.5); EOSINOPHILS % 4.8 % (0.0-7.0); HEMATOCRIT 34.2 % (42.0-52.0); HEMOGLOBIN 10.9 g/dl (14.0-18.0); LYMPHOCYTES # 1.2 10^3/ul (0.8-2.9); MEAN CORPUSCULAR HEMOGLOBIN 28.6 pg (29.0-33.0); MEAN CORPUSCULAR HGB CONC 31.9 g/dl (32.0-37.0); MEAN CORPUSCULAR VOLUME 89.8 fl (82.0-101.0); MEAN PLATELET VOLUME 11.4 fl (7.4-10.4); MONOCYTE # 0.6 10^3/ul (0.3-0.9); MONOCYTES % 8.6 % (0.0-11.0); NEUTROPHIL # 4.5 10^3/ul (1.6-7.5); NEUTROPHILS % 67.5 % (39.0-77.0); PLATELET COUNT 228 10^3/UL (140-415); RED BLOOD COUNT 3.81 10^6/ul (4.70-6.10); RED CELL DISTRIBUTION WIDTH 14.3 % (11.5-14.5)
[2018-03-22 07:19] LABS: MAGNESIUM 1.9 mg/dl (1.7-2.5)
[2018-03-22 07:19] LABS: PHOSPHORUS 3.3 mg/dl (2.5-4.9)
[2018-03-22 07:21] LABS: ALANINE AMINOTRANSFERASE 22 IU/L (13-69); ALBUMIN 2.8 g/dl (3.3-4.9); ALBUMIN/GLOBULIN RATIO 1.03; ALKALINE PHOSPHATASE 122 IU/L (42-121); ANION GAP 6 (5-13); ASPARTATE AMINO TRANSFERASE 22 IU/L (15-46); BILIRUBIN,INDIRECT 0.1 mg/dl (0-1.1); BILIRUBIN,TOTAL 0.1 mg/dl (0.2-1.3); BLOOD UREA NITROGEN 18 mg/dl (7-20); CALCIUM 8.3 mg/dl (8.4-10.2); CARBON DIOXIDE 27 mmol/L (21-31); CHLORIDE 110 mmol/L (97-110); CREATININE 1.13 mg/dl (0.61-1.24); Estimated GFR > 60 mL/min (>60); GLUCOSE 89 mg/dl (70-220); SODIUM 143 mmol/L (135-144); TOTAL PROTEIN 5.5 g/dl (6.1-8.1)
[2018-03-22] MEDS: INSULIN ASPART [NOVOLOG] 3 ML PEN SC ×6 (07:25→18:59)
[2018-03-22] MEDS: GABAPENTIN 400 MG CAP PO ×2 (09:00→13:28)
[2018-03-22] MEDS: AMLODIPINE 10 MG TAB PO (09:00)
[2018-03-22] MEDS: DIVALPROEX (EC) 250 MG TAB PO (09:00)
[2018-03-22] MEDS: ASPIRIN (EC) 81 MG TAB PO (09:00)
[2018-03-22] MEDS: BALSAM PERU/CASTOR OIL 60 GM TUBE TOP (09:00)
[2018-03-22] MEDS: FINASTERIDE 5 MG TAB PO (09:00)
[2018-03-22] MEDS: LOSARTAN 50 MG TAB PO (09:00)
[2018-03-22] MEDS: HEPARIN 5,000 UNIT/1 ML VIAL SC (09:00)
[2018-03-22] MEDS: DOCUSATE SODIUM 100 MG CAP PO (09:00)
[2018-03-22] MEDS ORDERED: HEPARIN 5,000 UNIT/0.5 ML VIAL (09:40)
[2018-03-22] MEDS: morphine 2 MG INJ IV (10:46)
[2018-03-22] MEDS: HYDROCODONE/APAP (5/325) TAB PO (17:35)
== END 2018-03-22 18:55 | DRG 919 ==
LOC: TEL 03-18 16:00 → E/R 07:02 → ICU 08:59
PROC: 0FPB8DZ Removal of Intraluminal Device from Hepatobiliary Duct, Via Natural or Artificial Opening Endoscopic (ICD-10-PCS; principal; 2018-03-21 08:30)
PROC: 0FC98ZZ Extirpation of Matter from Common Bile Duct, Via Natural or Artificial Opening Endoscopic (ICD-10-PCS; 2018-03-21 08:30)
PROC: BF10YZZ Fluoroscopy of Bile Ducts using Other Contrast (ICD-10-PCS; 2018-03-21 08:30)
PROC: 30243N0 Transfusion of Autologous Red Blood Cells into Central Vein, Percutaneous Approach (ICD-10-PCS; 2018-03-21 09:00)
DX: T85.79XA Infection and inflammatory reaction due to other internal prosthetic devices, implants and grafts, initial encounter (principal); A41.9 Sepsis, unspecified organism; E11.10 Type 2 diabetes mellitus with ketoacidosis without coma; R65.20 Severe sepsis without septic shock; N17.9 Acute kidney failure, unspecified; I69.351 Hemiplegia and hemiparesis following cerebral infarction affecting right dominant side; G93.40 Encephalopathy, unspecified; K80.32 Calculus of bile duct with acute cholangitis without obstruction; D50.9 Iron deficiency anemia, unspecified; D63.1 Anemia in chronic kidney disease; E87.5 Hyperkalemia; E86.0 Dehydration; E78.5 Hyperlipidemia, unspecified; E11.42 Type 2 diabetes mellitus with diabetic polyneuropathy; E11.22 Type 2 diabetes mellitus with diabetic chronic kidney disease; F01.50 Vascular dementia, unspecified severity, without behavioral disturbance, psychotic disturbance, mood disturbance, and anxiety; F02.80 Dementia in other diseases classified elsewhere, unspecified severity, without behavioral disturbance, psychotic disturbance, mood disturbance, and anxiety; F31.9 Bipolar disorder, unspecified; F41.9 Anxiety disorder, unspecified; G89.4 Chronic pain syndrome; G47.00 Insomnia, unspecified; G20 Parkinson's disease; I12.9 Hypertensive chronic kidney disease with stage 1 through stage 4 chronic kidney disease, or unspecified chronic kidney disease; J84.10 Pulmonary fibrosis, unspecified; K59.00 Constipation, unspecified; N40.0 Benign prostatic hyperplasia without lower urinary tract symptoms; N18.3 Chronic kidney disease, stage 3 (moderate); R00.1 Bradycardia, unspecified; S30.810A Abrasion of lower back and pelvis, initial encounter; X58.XXXA Exposure to other specified factors, initial encounter; Z87.891 Personal history of nicotine dependence; Z79.82 Long term (current) use of aspirin; Z79.4 Long term (current) use of insulin; Z96.89 Presence of other specified functional implants
CPT/HCPCS: 36415; 36430; 36569; 36600; 71045; 74176; 74330; 76937; 80048; 80053; 80076; 81003; 82270; 82607; 82728; 82746; 82803; 82962; 83036; 83540; 83605; 83690; 83735; 84100; 84439; 84443; 84681; 85025; 85045; 86850; 86900; 86901; 86920; 87040; 87045; 87081; 87086; 93005; 94664; 99291-25